=== PATIENT | male | born 1945 | race Caucasian/White ===

== ENCOUNTER → 2018-08-16 | Outpatient (CLI) | payer MEDICARE | END | disposition home or self-care (01) | LOC: PCVCCLINIC 11:02 | PROVIDERS: ATTEND Internal Medicine Cardiovascular Disease | DX: I48.92 Unspecified atrial flutter (principal); I10 Essential (primary) hypertension; I71.2 Thoracic aortic aneurysm, without rupture; R60.9 Edema, unspecified; K21.9 Gastro-esophageal reflux disease without esophagitis; F17.200 Nicotine dependence, unspecified, uncomplicated | CPT/HCPCS: 93005; G0463 ==

== ENCOUNTER → 2019-02-14 | Outpatient (CLI) | payer MEDICARE ==
--- NOTE | 2019-02-14 13:01 | PCVCIMAG ---
APPROVED REPORT Study performed: 02/14/2019 10:05:11 EXAM: Comprehensive 2D, Doppler, and color-flow Echocardiogram Patient Location: Echo lab Room #: 3Status: routine BSA: 2.07 HR: 59 bpmBP: 176/64 mmHg Rhythm: NSR Other Information Study Quality: Good Risk Factors: Cardiac Risk Factors: HTN Indications Aortic Valve Disease CVA/TIA Hx A fib ablation, Asc Ao aneurysm, Bicuspid aortic valve 2D Dimensions IVSd: 12.93 (7-11mm)LVOT Diam: 19.73 (18-24mm) LVDd: 58.49 mm PWd: 10.19 (7-11mm)Ascending Ao: 44.87 (22-36mm) LVDs: 36.80 (25-40mm) Left Atrium: 38.70 (27-40mm) Aortic Root: 34.02 mm LV Single Plane 4CH: 55.00 % LV Single Plane 2CH: 67.95 % Biplane EF: 64.0 % Volumes Left Atrial Volume (Systole) Single Plane 4CH: 52.01 mLSingle Plane 2CH: 50.19 mL Biplane LA Volume: 53.00 mLLA ESV Index: 25.00 mL/m2 Aortic Valve AoV Peak Nitesh.: 2.67 m/s AO Peak Gr.: 33.41 mmHgLVOT Max P.07 mmHg AO Mean Gr.: 16.89 mmHgLVOT Mean P.01 mmHg AO V2 Mean: 1.93 m/sLVOT Max V: 1.00 m/s AO V2 VTI: 58.84 cmLVOT Mean V: 0.62 m/s JOSE (VTI): 1.16 [id number] VTI: 22.37 cm JOSE Vmax: 1.14 cm2 AI Vmax: 4.21 m/sSV (LVOT): 68.34 mL AI [place]: 1.73 m/s2 AI PHT: 705.40 ms Mitral Valve E/A Ratio: 0.9 MV Decel. Time: 196.72 ms MV E Max Nitesh.: 0.70 m/s MV A Nitesh.: 0.77 m/s IVRT: 117.65 ms TDI E/Lateral E': 11.67E/Medial E': 10.00 Medial E' Nitesh.: 0.07 m/s Lateral E' Nitesh.: 0.06 m/s Pulmonary Valve PV Peak Nitesh.: 0.77 m/sPV Peak Gr.: 2.37 mmHg Pulmonary Vein P Vein S: 0.58 m/sP Vein A: 0.40 m/s P Vein D: 0.76 m/sP Vein A Dur.: 86.5 msec P Vein S/D Ratio: 0.76 Tricuspid Valve TR Peak Nitesh.: 1.98 m/s TR Peak Gr.: 15.62 mmHg TV Vmax: 0.55 m/sPA Pressure: 23.00 mmHg Left Ventricle The left ventricle is normal size. There is normal LV segmental wall motion. Mild concentric left ventricular hypertrophy. Left ventricular systolic function is normal. The left ventricular ejection fraction is within the normal range. LVEF is 60-65%. Right Ventricle The right ventricle is normal size. The right ventricular systolic function is normal. Atria The left atrium size is normal. The right atrium size is normal. Aortic Valve Moderate aortic valve sclerosis. Moderate aortic regurgitation. Mild aortic stenosis. Highest mean aortic valve gradient is 17_mmHg. Peak aortic valve gradient is 28_mmHg. Mitral Valve The mitral valve is normal in structure. There is no mitral valve regurgitation noted. No evidence of mitral valve stenosis. Tricuspid Valve The tricuspid valve is normal in structure. Mild tricuspid regurgitation with a PA pressure of 23 mmHg. Pulmonic Valve The pulmonary valve is normal in structure. There is no pulmonic valvular regurgitation. Great Vessels The aortic root is normal in size. Ascending aorta is dilated at 4.5 cm. Aortic arch is normal in caliber. IVC is normal in size and collapses >50% with inspiration. Pericardium There is no pericardial effusion. There is no pleural effusion. <Conclusion> The left ventricle is normal size. Mild concentric left ventricular hypertrophy. Left ventricular systolic function is normal. The right ventricle is normal size. The left atrium size is normal. Moderate aortic valve sclerosis. Moderate aortic regurgitation. Mild aortic stenosis. Peak aortic valve gradient is 28_mmHg. There is no mitral valve regurgitation noted. Mild tricuspid regurgitation with a PA pressure of 23 mmHg. Ascending aorta is dilated at 4.5 cm.
== END | disposition home or self-care (01) ==
LOC: PCVCIMAG 09:48
PROVIDERS: ATTEND Internal Medicine Cardiovascular Disease
DX: I08.2 Rheumatic disorders of both aortic and tricuspid valves (principal); I48.92 Unspecified atrial flutter; I10 Essential (primary) hypertension; F17.200 Nicotine dependence, unspecified, uncomplicated; Z88.0 Allergy status to penicillin; Z88.1 Allergy status to other antibiotic agents
CPT/HCPCS: 93005; 93306; G0463